=== PATIENT | female | born 1955 | race Caucasian/White ===

== ENCOUNTER 2017-11-07 21:46 | Emergency (ER) | payer MEDICARE ==
[~2017-11-07] VITALS: Ht 162.6 cm; Wt 99.8 kg
[~2017-11-07 21:46] MED LIST: AMITRIPTYLINE H25 M3 PO; ASPIRIN325 PO; ASPIRIN81 M2 PO; BYSTOLIC 5 MG5 M1 PO; CEFUROXIME500 MG PO; CLONIDINE HCL0.1 M1 PO; CLONIDINE HCL0.2 M2 PO; HYDRALAZINE 2525 MG PO; IMIPRAMINE HCL25 MG PO; KEFLEX250 MG PO; LIPITOR 20 MG T20 M1 PO; MIDAMOR 5MG TABL5 M1 PO; NORVASC10 MG PO; PERCOCET 5-3251 EACH PO; PERCOCET PO; RESTORIL15 MG PO; SERTRALINE HCL50 MG PO; TRAZODONE HCL100 MG PO; VICODIN 5-5001 EACH PO; VITAMIN D250000 UNIT PO; ZANAFLEX4 MG PO; ZOFRAN ODT4 MG PO
[2017-11-07] MEDS ORDERED: COMPAZINE10 MG PO (22:11)
[2017-11-07] MEDS ORDERED: CLONIDINE HCL0.2 M2 PO (22:11)
[2017-11-07 22:43] LABS: ABSOLUTE BASOPHILS 0.1 thou/uL (0.0-0.2); ABSOLUTE LYMPHOCYTES 2.8 thou/uL (0.8-5.3); ABSOLUTE MONOCYTES 0.6 thou/uL (0.0-1.2); ABSOLUTE NEUTROPHILS 7.4 thou/uL (1.6-8.1); BASOPHILS 1.2 %; EOSINOPHILS 0.3 %; HEMATOCRIT 48.3 % (37.0-47.0); HEMOGLOBIN 15.8 gm/dL (12.0-15.0); LYMPHOCYTES 25.4 %; MCH 28.8 pg (26.0-34.0); MCHC 32.7 g/dL (28.0-37.0); MCV 87.9 fL (80.0-100.0); MONOCYTES 5.8 %; MPV 7.6 fl. (7.2-11.1); NUCLEATED RBCS 0 /100WBC; PLATELET COUNT* 262 thou/uL (150-400); POLYS 67.3 %; RDW-CV 14.5 % (10.5-14.5)
[2017-11-07 22:53] LABS: ANION GAP 8 mmol/L (7-16); BUN 7 mg/dL (7-18); CALCIUM 8.7 mg/dL (8.5-10.1); CHLORIDE 101 mmol/L (98-107); CO2 28 mmol/L (21-32); CREATININE 0.9 mg/dL (0.6-1.3); GLUCOSE 152 mg/dL (70-99); POTASSIUM 3.5 mmol/L (3.5-5.1); SODIUM 137 mmol/L (136-145)
[2017-11-07 23:03] LABS: ALBUMIN 3.6 g/dL (3.4-5.0); ALKALINE PHOSPHATASE 112 U/L (46-116); LIPASE 58 U/L (73-393); MAGNESIUM 1.6 mg/dL (1.8-2.4); NT-PRO BRAIN NAT PEPTIDE 1610 pg/mL (<300); SGOT 22 U/L (15-37); SGPT 23 U/L (30-65); TOTAL BILIRUBIN 0.8 mg/dL (<0.1-1.0); TOTAL PROTEIN 7.4 g/dL (6.4-8.2); TROPONIN-I LEVEL <0.06 ng/mL (<0.06)
[2017-11-08 03:10] LABS: URINE BILIRUBIN NEGATIVE (Negative); URINE BLOOD 1+ (Negative); URINE CLARITY SL CLOUDY; URINE COLOR YELLOW; URINE GLUCOSE-RANDOM NEGATIVE (Negative); URINE KETONES NEGATIVE (Negative); URINE LEUKOCYTES-REFLEX 2+ (Negative); URINE NITRITE-REFLEX NEGATIVE (Negative); URINE PROTEIN 1+ (Negative); URINE UROBILINOGEN 0.2 E.U./dl (0.2-1.0)
[2017-11-08 03:15] LABS: CASTS None Seen /LPF (None Seen); SQUAMOUS NONE SEEN /LPF (0-3)
[2017-11-08 03:16] LABS: BACTERIA-REFLEX >30 Many /HPF (None Seen); CRYSTALS None Seen /LPF (None Seen); URINE RBC 3-10 Few /HPF (0-2); URINE WBC-REFLEX 6-15 Few /HPF (0-5)
[2017-11-08] MEDS ORDERED: NORCO 5-325 TA1 EACH PO (04:15)
[2017-11-08] MEDS ORDERED: TETRACYCLINE H250 MG PO (04:15)
[2017-11-08 05:16] VITALS: BP 200/106
--- NOTE | 2017-11-08 11:00 | EKG ---
[place] [address] ELECTROCARDIOGRAM REPORT Name: NIRMAL CAMACHO Room: [facility]#: [id number] Admission: 11/07/17 Attend Phys: Discharge: 11/08/17 Date of : 53 Report #: [id number] THIS REPORT FOR: //name// 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
--- NOTE | 2017-11-08 11:02 | EKG ---
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
[2017-12-31] MEDS ORDERED: MOBIC15 MG PO (12:52)
[2017-12-31] MEDS ORDERED: MEDROLDOSEPACK PO (13:02)
[2017-12-31] MEDS ORDERED: ZANAFLEX4 MG PO (14:01)
[2017-12-31] MEDS ORDERED: NORTRIPTYLINE H25 M3 PO (14:01)
== END 2017-11-08 05:17 | disposition home or self-care (01) ==
LOC: M.ERS 21:46
PROVIDERS: Emergency Medicine Emergency Medical Services
DX: M25.511 Pain in right shoulder (principal); M25.512 Pain in left shoulder; N39.0 Urinary tract infection, site not specified; F32.9 Major depressive disorder, single episode, unspecified; I10 Essential (primary) hypertension; Z90.710 Acquired absence of both cervix and uterus; Z90.49 Acquired absence of other specified parts of digestive tract; E66.9 Obesity, unspecified; Z68.37 Body mass index [BMI] 37.0-37.9, adult; Z88.1 Allergy status to other antibiotic agents; Z88.2 Allergy status to sulfonamides; Z88.8 Allergy status to other drugs, medicaments and biological substances

== ENCOUNTER 2017-11-13 09:25 | Emergency (ER) | payer MEDICARE ==
[~2017-11-13] VITALS: Ht 162.6 cm; Wt 99.8 kg
[~2017-11-13 09:25] MED LIST changes: +COMPAZINE10 MG PO; +NORCO 5-325 TA1 EACH PO; +TETRACYCLINE H250 MG PO
[2017-11-13] MEDS ORDERED: RESTORIL15 MG PO (09:35)
[2017-11-13] MEDS ORDERED: CLONIDINE0.1 PO (09:35)
[2017-11-13 09:54] LABS: ABSOLUTE BASOPHILS 0.1 thou/uL (0.0-0.2); ABSOLUTE LYMPHOCYTES 2.3 thou/uL (0.8-5.3); ABSOLUTE MONOCYTES 0.6 thou/uL (0.0-1.2); ABSOLUTE NEUTROPHILS 6.1 thou/uL (1.6-8.1); BASOPHILS 0.7 %; EOSINOPHILS 0.5 %; HEMATOCRIT 46.4 % (37.0-47.0); HEMOGLOBIN 15.5 gm/dL (12.0-15.0); LYMPHOCYTES 25.2 %; MCH 29.1 pg (26.0-34.0); MCHC 33.4 g/dL (28.0-37.0); MCV 87.2 fL (80.0-100.0); MONOCYTES 6.7 %; MPV 7.6 fl. (7.2-11.1); NUCLEATED RBCS 0 /100WBC; PLATELET COUNT* 213 thou/uL (150-400); POLYS 66.9 %; RBC 5.32 mil/uL (4.20-5.00); RDW-CV 14.9 % (10.5-14.5); WBC 9.1 thou/uL (4.0-11.0)
[2017-11-13 10:05] LABS: CREATININE 0.7 mg/dL (0.6-1.3); POTASSIUM 3.5 mmol/L (3.5-5.1)
[2017-11-13 10:10] LABS: ALBUMIN 3.6 g/dL (3.4-5.0); TOTAL BILIRUBIN 0.9 mg/dL (<0.1-1.0); TOTAL PROTEIN 7.2 g/dL (6.4-8.2)
[2017-11-13 11:31] VITALS: BP 190/105
--- NOTE | 2017-11-13 17:25 | EKG ---
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
[2017-12-31] MEDS ORDERED: MOBIC15 MG PO (12:52)
[2017-12-31] MEDS ORDERED: MEDROLDOSEPACK PO (13:02)
[2017-12-31] MEDS ORDERED: ZANAFLEX4 MG PO (14:01)
[2017-12-31] MEDS ORDERED: NORTRIPTYLINE H25 M3 PO (14:01)
== END 2017-11-13 11:31 | disposition home or self-care (01) ==
LOC: M.ERS 09:25
PROVIDERS: Family Medicine
DX: G89.29 Other chronic pain (principal); M54.9 Dorsalgia, unspecified; R07.89 Other chest pain; R10.9 Unspecified abdominal pain; F32.9 Major depressive disorder, single episode, unspecified; I10 Essential (primary) hypertension; E66.9 Obesity, unspecified; Z68.37 Body mass index [BMI] 37.0-37.9, adult; Z88.1 Allergy status to other antibiotic agents; Z88.2 Allergy status to sulfonamides; Z88.8 Allergy status to other drugs, medicaments and biological substances; Z90.710 Acquired absence of both cervix and uterus; Z90.49 Acquired absence of other specified parts of digestive tract

== ENCOUNTER → 2017-11-28 | Outpatient (CLI) | payer MEDICARE ==
[~2017-11-28] MED LIST changes: +CLONIDINE0.1 PO; +MEDROLDOSEPACK PO; +MOBIC15 MG PO; +NORTRIPTYLINE H25 M3 PO
== END ==
LOC: M.NUC 12:44
DX: M54.6 Pain in thoracic spine (principal); G89.29 Other chronic pain; M54.2 Cervicalgia; M54.41 Lumbago with sciatica, right side; M54.42 Lumbago with sciatica, left side; R10.13 Epigastric pain; M47.892 Other spondylosis, cervical region; I10 Essential (primary) hypertension; E66.9 Obesity, unspecified; F32.9 Major depressive disorder, single episode, unspecified; Z90.710 Acquired absence of both cervix and uterus

== ENCOUNTER → 2017-11-29 | Outpatient (CLI) | payer MEDICARE | LOC: M.MRI 11-20 10:39 | DX: M54.6 Pain in thoracic spine (principal); G89.29 Other chronic pain; M54.2 Cervicalgia; M54.41 Lumbago with sciatica, right side; M54.42 Lumbago with sciatica, left side; M47.896 Other spondylosis, lumbar region; M47.897 Other spondylosis, lumbosacral region; I10 Essential (primary) hypertension; F32.9 Major depressive disorder, single episode, unspecified; E66.9 Obesity, unspecified; Z90.710 Acquired absence of both cervix and uterus ==

== ENCOUNTER → 2017-12-23 | Outpatient (CLI) | payer MEDICARE ==
--- NOTE | 2017-12-23 17:39 | 2DMMODE ---
[place] [address] 2 D/M-MODE ECHOCARDIOGRAM Name: CAMACHONIRMAL Room: [facility]#: [id number] Admission: 12/23/17 Attend Phys: Fadi Smith, Discharge: Date of : 53 Date of Service: 12/23/17 1738 Report #: [id number] THIS REPORT FOR: //name// APPROVED REPORT Study performed: 12/23/2017 13:36:50 EXAM: Comprehensive 2D, Doppler, and color-flow Echocardiogram Patient Location: Out-Patient Status: routine BSA: 1.88 HR: 98 bpm BP: 112/51 mmHg Other Information Study Quality: Fair Indications Congestive Heart Failure 2D Dimensions IVSd: 12.31 (7-11mm) LVOT Diam: 20.39 (18-24mm) LVDd: 32.37 mm PWd: 11.42 (7-11mm) Ascending Ao: 25.86 (22-36mm) LVDs: 26.59 (25-40mm) Aortic Root: 28.91 mm Volumes Left Atrial Volume (Systole) LA ESV Index: 16.30 mL/m2 Aortic Valve AoV Peak Pranav.: 1.03 m/s AO Peak Gr.: 4.27 mmHg LVOT Max P.93 mmHg AO Mean Gr.: 2.42 mmHg LVOT Mean P.67 mmHg LVOT Max V: 0.86 m/s AO V2 VTI: 18.60 cm LVOT Mean V: 0.61 m/s CRISSY (VTI): 3.10 cm2 LVOT V1 VTI: 17.62 cm Mitral Valve E/A Ratio: 0.76 MV Decel. Time: 246.56 ms MV E Max Pranav.: 0.62 m/s MV PHT: 71.50 [place] [address] 2 D/M-MODE ECHOCARDIOGRAM Name: JANICENIRMAL Room: [facility]#: [id number] Admission: 12/23/17 Attend Phys: Fadi Smith, Discharge: Date of : 53 Date of Service: 12/23/17 1738 Report #: [id number] MVA (PHT): 3.08 cm2 TDI E/Lateral E': 10.33 E/Medial E': 10.33 Medial E' Pranav.: 0.06 m/s Lateral E' Pranav.: 0.06 m/s Pulmonary Valve PV Peak Pranav.: 1.01 m/s PV Peak Gr.: 4.04 mmHg Left Ventricle The left ventricle is normal size. There is normal LV segmental wall motion. There is normal left ventricular wall thickness. Left ventricular systolic function is vigorous. LVEF is >70%. Grade I - abnormal relaxation pattern. Right Ventricle The right ventricle is normal size. The right ventricular systolic function is normal. Atria The left atrium size is normal. The right atrium size is normal. Aortic Valve Mild aortic valve sclerosis. No aortic regurgitation is present. There is no aortic valvular stenosis. Mitral Valve The mitral valve is normal in structure. There is no mitral valve regurgitation noted. No evidence of mitral valve stenosis. Tricuspid Valve The tricuspid valve is normal in structure. There is no tricuspid valve regurgitation noted. Pulmonic Valve The pulmonary valve is normal in structure. Mild pulmonic regurgitation. Great Vessels The aortic root is normal in size. IVC is normal in size and collapses >50% with inspiration. Pericardium There is no peric[place] [address] 2 D/M-MODE ECHOCARDIOGRAM Name: JANICENIRMAL Room: [facility]#: [id number] Admission: 12/23/17 Attend Phys: Fadi Smith, Discharge: Date of : 53 Date of Service: 12/23/17 1738 Report #: [id number] <Conclusion> The left ventricle is normal size. There is normal left ventricular wall thickness. Left ventricular systolic function is vigorous. LVEF is >70%. Grade I - abnormal relaxation pattern. IVC is normal in size and collapses >50% with inspiration. <ELECTRONICALLY SIGNED> By: Edgardo Martinez MD, FACC 12/23/17 173 37 37 Edgardo Martinez MD, FACC /INF
== END ==
LOC: M.CRD 12:41
DX: I35.8 Other nonrheumatic aortic valve disorders (principal); I37.1 Nonrheumatic pulmonary valve insufficiency; I50.22 Chronic systolic (congestive) heart failure; G89.29 Other chronic pain; M54.41 Lumbago with sciatica, right side; M54.42 Lumbago with sciatica, left side; M79.604 Pain in right leg; M79.605 Pain in left leg

== ENCOUNTER → 2017-12-31 | Outpatient (CLI) | payer MEDICARE | LOC: M.PC 08:21 | DX: M54.5 Low back pain (principal); M25.521 Pain in right elbow; M25.561 Pain in right knee; M25.562 Pain in left knee ==

== ENCOUNTER 2018-03-19 17:38 | Emergency (ER) | payer MEDICARE ==
[~2018-03-19] VITALS: Ht 162.6 cm; Wt 73.0 kg
[2018-03-19 18:34] LABS: URINE BILIRUBIN NEGATIVE (Negative); URINE BLOOD NEGATIVE (Negative); URINE CLARITY CLEAR; URINE COLOR YELLOW; URINE GLUCOSE-RANDOM NEGATIVE (Negative); URINE KETONES TRACE (Negative); URINE LEUKOCYTES-REFLEX 1+ (Negative); URINE NITRITE-REFLEX NEGATIVE (Negative); URINE PROTEIN NEGATIVE (Negative)
[2018-03-19 18:56] LABS: MUCUS 0-3 Light strn/LPF (None Seen); SQUAMOUS >10 Many /LPF (0-3)
[2018-03-19 18:57] LABS: BACTERIA-REFLEX >30 Many /HPF (None Seen); CRYSTALS None Seen /LPF (None Seen)
[2018-03-19 18:59] LABS: CASTS None Seen /LPF (None Seen); URINE RBC None Seen /HPF (0-2)
[2018-03-19 19:00] LABS: ABSOLUTE BASOPHILS 0.1 thou/uL (0.0-0.2); ABSOLUTE LYMPHOCYTES 2.2 thou/uL (0.8-5.3); ABSOLUTE MONOCYTES 0.8 thou/uL (0.0-1.2); ABSOLUTE NEUTROPHILS 7.2 thou/uL (1.6-8.1); BASOPHILS 1.1 %; EOSINOPHILS 0.2 %; HEMATOCRIT 44.2 % (37.0-47.0); HEMOGLOBIN 14.8 gm/dL (12.0-15.0); LYMPHOCYTES 21.1 %; MCH 30.7 pg (26.0-34.0); MCHC 33.5 g/dL (28.0-37.0); MCV 91.7 fL (80.0-100.0); MONOCYTES 7.7 %; MPV 7.2 fl. (7.2-11.1); NUCLEATED RBCS 0 /100WBC; PLATELET COUNT* 267 thou/uL (150-400); POLYS 69.9 %; RBC 4.82 mil/uL (4.20-5.00); RDW-CV 14.7 % (10.5-14.5); WBC 10.3 thou/uL (4.0-11.0)
[2018-03-19 19:13] LABS: ANION GAP 9 mmol/L (7-16); BUN 6 mg/dL (7-18); CHLORIDE 103 mmol/L (98-107); CO2 25 mmol/L (21-32); CREATININE 0.8 mg/dL (0.6-1.3); GLUCOSE 122 mg/dL (70-99); POTASSIUM 3.3 mmol/L (3.5-5.1); SODIUM 137 mmol/L (136-145)
[2018-03-19 19:21] LABS: ALKALINE PHOSPHATASE 112 U/L (46-116); LIPASE 41 U/L (73-393); SGOT 16 U/L (15-37); SGPT 14 U/L (30-65); TOTAL PROTEIN 6.4 g/dL (6.4-8.2); TROPONIN-I LEVEL <0.06 ng/mL (<0.06)
[2018-03-19] MEDS ORDERED: NORCO 5-325 TA1 EACH PO (19:54)
[2018-03-19] MEDS ORDERED: MACROBID 100 M100 M1 PO (19:55)
[2018-03-19 22:00] VITALS: BP 171/99
--- NOTE | 2018-03-20 09:52 | EKG ---
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 : 1955 Requested By: Ale Chappell Order Number: [id number] MD: Fadi Moody Measurements Intervals [place] Rate: 101 P: 53 [place]: 161 QRS: 9 QRSD: 90 T: 41 QT: 358 QTc: 465 Interpretive Statements Sinus tachycardia Compared to ECG 11/13/2017 09:39:51 Sinus rhythm no longer present ST (T wave) deviation no longer present Electronically Signed On 03-20-2018 9:52:37 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
== END 2018-03-19 22:07 | disposition home or self-care (01) ==
LOC: M.ERS 17:38
PROVIDERS: Physician Assistant
DX: N39.0 Urinary tract infection, site not specified (principal); I10 Essential (primary) hypertension; F32.9 Major depressive disorder, single episode, unspecified; E66.9 Obesity, unspecified; Z68.27 Body mass index [BMI] 27.0-27.9, adult; Z88.1 Allergy status to other antibiotic agents; Z88.2 Allergy status to sulfonamides; Z88.8 Allergy status to other drugs, medicaments and biological substances; Z90.710 Acquired absence of both cervix and uterus; Z90.49 Acquired absence of other specified parts of digestive tract

== ENCOUNTER → 2018-05-20 | Outpatient (CLI) | payer MEDICARE ==
[~2018-05-20] MED LIST changes: +MACROBID 100 M100 M1 PO
== END ==
LOC: M.ULTRA 12:44
DX: M79.604 Pain in right leg (principal); M79.605 Pain in left leg; R25.2 Cramp and spasm

== ENCOUNTER 2018-06-07 13:31 | Emergency (ER) | payer MEDICARE ==
[~2018-06-07] VITALS: Ht 162.6 cm; Wt 82.6 kg
[2018-06-07] MEDS ORDERED: AMITRIPTYLINE H25 M4 (13:42)
[2018-06-07] MEDS ORDERED: CYCLOBENZAPRINE5 MG PO (13:43)
[2018-06-07] MEDS ORDERED: [UNRECOGNIZED DRUG - OTHER] (13:43)
[2018-06-07 14:19] LABS: ABSOLUTE BASOPHILS 0.1 thou/uL (0.0-0.2); ABSOLUTE LYMPHOCYTES 2.3 thou/uL (0.8-5.3); ABSOLUTE MONOCYTES 0.7 thou/uL (0.0-1.2); BASOPHILS 0.5 %; EOSINOPHILS 0.4 %; HEMOGLOBIN 15.4 gm/dL (12.0-15.0); LYMPHOCYTES 21.1 %; MCH 29.1 pg (26.0-34.0); MCHC 32.8 g/dL (28.0-37.0); MCV 88.6 fL (80.0-100.0); MONOCYTES 6.1 %; MPV 8.2 fl. (7.2-11.1); NUCLEATED RBCS 0 /100WBC; PLATELET COUNT* 164 thou/uL (150-400); POLYS 71.9 %; RDW-CV 13.8 % (10.5-14.5); WBC 11.1 thou/uL (4.0-11.0)
[2018-06-07 14:46] LABS: ANION GAP 10 mmol/L (7-16); BUN 8 mg/dL (7-18); CALCIUM 9.3 mg/dL (8.5-10.1); CHLORIDE 104 mmol/L (98-107); CO2 27 mmol/L (21-32); CREATININE 0.9 mg/dL (0.6-1.3); GLUCOSE 135 mg/dL (70-99); SODIUM 141 mmol/L (136-145); TROPONIN-I LEVEL <0.06 ng/mL (<0.06)
[2018-06-07 15:01] LABS: ALBUMIN 3.5 g/dL (3.4-5.0); ALKALINE PHOSPHATASE 128 U/L (46-116); CK-MB MASS 0.7 ng/mL (<0.5-3.6); LIPASE 44 U/L (73-393); MAGNESIUM 1.8 mg/dL (1.8-2.4); NT-PRO BRAIN NAT PEPTIDE 516 pg/mL (<300); SGOT 13 U/L (15-37); SGPT 5 U/L (30-65); TOTAL BILIRUBIN 0.3 mg/dL (<0.1-1.0); TOTAL PROTEIN 7.5 g/dL (6.4-8.2)
[2018-06-07] MEDS ORDERED: PERCOCET 5-3251 EACH PO (15:33)
[2018-06-07 15:54] VITALS: BP 180/99
--- NOTE | 2018-06-09 11:04 | EKG ---
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
== END 2018-06-07 15:56 | disposition home or self-care (01) ==
LOC: M.ERS 13:31
PROVIDERS: Family Medicine
DX: G89.29 Other chronic pain (principal); M54.9 Dorsalgia, unspecified; R07.89 Other chest pain; F32.9 Major depressive disorder, single episode, unspecified; I10 Essential (primary) hypertension; E66.9 Obesity, unspecified; Z68.31 Body mass index [BMI] 31.0-31.9, adult; Z88.1 Allergy status to other antibiotic agents; Z88.2 Allergy status to sulfonamides; Z88.8 Allergy status to other drugs, medicaments and biological substances; Z90.710 Acquired absence of both cervix and uterus; Z90.49 Acquired absence of other specified parts of digestive tract

== ENCOUNTER 2018-06-20 12:03 | Inpatient (IN) | payer MEDICARE ==
[~2018-06-20] VITALS: Ht 165.1 cm; Wt 76.7 kg
--- NOTE | ~2018-06-20 | CON ---
[address] [address] CONSULTATION Name: JANICENIRMAL EDI Room: [address] IN .R.#: [id number] Admission: 06/20/18 Attend Phys: Markie De Los Santos MD Discharge: Date of : 53 Report #: [id number] THIS REPORT FOR: //name// CC: Markie Smith DATE OF SERVICE: 06/22/2018 INPATIENT CONSULTATION REQUESTING PHYSICIAN: Dr. De Los Santos PRIMARY CARE PHYSICIAN: Dr. Smith REASON FOR CONSULTATION: Preop evaluation. HISTORY OF PRESENT ILLNESS: The patient is a 63-year-old smoker who had been having some neurologic symptoms, had a carotid Doppler, which revealed a greater than 70% stenosis of her left internal carotid artery. There is a moderate stenosis on the right side. She actually presented with epigastric pain. She has had some chest pressure occasionally. It usually starts in her stomach. She is not short of breath. She denies palpitations, heart racing or skipping. Her resting ECG demonstrates a sinus rhythm with nonspecific ST-segment abnormalities. PAST MEDICAL HISTORY: Significant for the following: She is treated for high blood pressure, chronic anxiety, GERD, hyperlipidemia. She is not diabetic. ALLERGIES: SHE HAS ALLERGIES TO AMPICILLIN, SUCRALFATE, GABAPENTIN. HOME MEDICATIONS: Include clonidine 0.1 mg b.i.d., trazodone 100 mg at bedtime and amitriptyline. PAST SURGICAL HISTORY: Hysterectomy, appendectomy, shoulder surgery, tobacco use. SOCIAL HISTORY: She quit smoking about 4 years ago. She does not drink. REVIEW OF SYSTEMS: CARDIOVASCULAR: Positive chest pain. Positive epigastric pain. No palpitation, no orthopnea, no PND, no dyspnea. PULMONARY: No history of asthma, emphysema. RENAL: Positive history of remote kidney failure. ENDOCRINE: She is not known to be diabetic. HEMATOLOGIC: [place] [address] CONSULTATION Name: NIRMAL CAMACHO Room: [address]#: [id number] Admission: 06/20/18 Attend Phys: Markie De Los Santos MD Discharge: Date of : 53 Report #: [id number] UROLOGIC: No history of kidney stones. SKIN: No rashes. GENERAL: No fevers or chills. OBJECTIVE: VITAL SIGNS: Blood pressure is 153/71, pulse is 100. GENERAL: This is a middle-aged female. She is a bit anxious. HEENT: Unremarkable. There is no facial asymmetry. NECK: Supple. No jugular venous distention. Carotid upstrokes are normal. I could not hear bruits. CARDIOVASCULAR: Regular, I cannot hear a murmur or S3. LUNGS: Clear to auscultation. ABDOMEN: Soft, nontender. EXTREMITIES: There is no peripheral edema. LABORATORY DATA: Electrocardiogram shows sinus rhythm, sinus tachycardia, somewhat lower voltage, but normal ST segments with slight T-wave nonspecific abnormality. Hemoglobin is 13.7, white blood cells 9.7, platelet count is 183. INR is 1.0. Carotid Doppler demonstrates mild plaquing on the right side with 40-60% stenosis. Moderate plaquing of the proximal left internal carotid artery with a greater than 70% stenosis. Bilateral antegrade vertebral flow. IMPRESSION: 1. Hypertension. I would continue with aggressive medical therapy. I would add a lower dose of an ARB, but I would not perform this additional change until after her carotid surgery. I will try to keep her blood pressure high normal to modestly elevated. 2. Carotid stenosis. I see no contraindications to her surgical therapy. She should have a stress test, but I would probably proceed with this as an outpatient after her surgery. Her echocardiogram has been ordered. Assuming there are no wall motion abnormalities and she has normal left ventricular function, she can proceed with carotid surgery with only moderately increased cardiovascular risk. 3. Hyperlipidemia. I would treat her aggressively with a statin. 4. Abdominal pain. She has been placed on proton pump inhibitor therapy and seems asymptomatic. By: 1038 [id number] Davila MD, FACC /nt
[~2018-06-20 12:03] MED LIST changes: +AMITRIPTYLINE H25 M4 PO; +CYCLOBENZAPRINE5 MG PO; +[UNRECOGNIZED DRUG - OTHER]
[2018-06-20 12:04] VITALS: BP 183/121
[2018-06-20 13:11] LABS: ABSOLUTE BASOPHILS 0.1 thou/uL (0.0-0.2); ABSOLUTE LYMPHOCYTES 1.7 thou/uL (0.8-5.3); ABSOLUTE MONOCYTES 0.9 thou/uL (0.0-1.2); ABSOLUTE NEUTROPHILS 10.4 thou/uL (1.6-8.1); BASOPHILS 0.8 %; EOSINOPHILS 0.2 %; HEMATOCRIT 44.3 % (37.0-47.0); HEMOGLOBIN 14.8 gm/dL (12.0-15.0); LYMPHOCYTES 13.1 %; MCH 29.2 pg (26.0-34.0); MCHC 33.4 g/dL (28.0-37.0); MCV 87.4 fL (80.0-100.0); MPV 8.3 fl. (7.2-11.1); NUCLEATED RBCS 0 /100WBC; PLATELET COUNT* 236 thou/uL (150-400); POLYS 78.9 %; RBC 5.07 mil/uL (4.20-5.00); RDW-CV 14.6 % (10.5-14.5); WBC 13.2 thou/uL (4.0-11.0)
[2018-06-20 13:18] LABS: APTT 26.3 Seconds (25.0-31.3); PROTIME 10.4 Seconds (9.20-11.50)
[2018-06-20 13:27] LABS: ALBUMIN 3.3 g/dL (3.4-5.0); ALKALINE PHOSPHATASE 109 U/L (46-116); ANION GAP 12 mmol/L (7-16); BUN 8 mg/dL (7-18); CALCIUM 9.7 mg/dL (8.5-10.1); CHLORIDE 103 mmol/L (98-107); CO2 28 mmol/L (21-32); CREATININE 0.8 mg/dL (0.6-1.3); GLUCOSE 130 mg/dL (70-99); LIPASE 33 U/L (73-393); POTASSIUM 3.3 mmol/L (3.5-5.1); SGOT 11 U/L (15-37); SGPT 9 U/L (30-65); SODIUM 143 mmol/L (136-145); TOTAL BILIRUBIN 0.8 mg/dL (<0.1-1.0); TOTAL PROTEIN 6.9 g/dL (6.4-8.2); TROPONIN-I LEVEL <0.06 ng/mL (<0.06)
[2018-06-20 15:23] LABS: URINE BILIRUBIN NEGATIVE (Negative); URINE BLOOD TRACE (Negative); URINE CLARITY CLEAR; URINE COLOR YELLOW; URINE GLUCOSE-RANDOM NEGATIVE (Negative); URINE KETONES NEGATIVE (Negative); URINE LEUKOCYTES-REFLEX 1+ (Negative); URINE NITRITE-REFLEX NEGATIVE (Negative); URINE PROTEIN NEGATIVE (Negative)
[2018-06-20 15:42] LABS: SQUAMOUS NONE SEEN /LPF (0-3); URINE RBC None Seen /HPF (0-2); URINE WBC-REFLEX 6-15 Few /HPF (0-5)
[2018-06-20 15:43] LABS: CASTS None Seen /LPF (None Seen); CRYSTALS None Seen /LPF (None Seen)
[2018-06-20] MEDS ORDERED: ZANAFLEX4 MG PO (16:47)
[2018-06-20 18:42] LABS: AMP/METHAMP Negative (Negative); BARBITURATES Negative (Negative); BENZODIAZEPINES Negative (Negative); COCAINE Negative (Negative); METHADONE Negative (Negative); OPIATES POSITIVE (Negative); PCP Negative (Negative); THC Negative (Negative)
[2018-06-20 20:01] VITALS: BP 146/58
[2018-06-20 20:12] VITALS: BP 161/65
[2018-06-20 23:24] VITALS: BP 173/91
[2018-06-21 04:03] VITALS: BP 161/93
[2018-06-21 05:07] LABS: ABSOLUTE BASOPHILS 0.1 thou/uL (0.0-0.2); ABSOLUTE EOSINOPHILS 0.1 thou/uL (0.0-0.7); ABSOLUTE LYMPHOCYTES 2.9 thou/uL (0.8-5.3); ABSOLUTE MONOCYTES 0.9 thou/uL (0.0-1.2); ABSOLUTE NEUTROPHILS 5.8 thou/uL (1.6-8.1); BASOPHILS 0.6 %; EOSINOPHILS 1.2 %; HEMATOCRIT 42.5 % (37.0-47.0); HEMOGLOBIN 13.7 gm/dL (12.0-15.0); LYMPHOCYTES 29.9 %; MCH 28.9 pg (26.0-34.0); MCHC 32.3 g/dL (28.0-37.0); MCV 89.4 fL (80.0-100.0); MONOCYTES 8.8 %; MPV 8.7 fl. (7.2-11.1); NUCLEATED RBCS 0 /100WBC; PLATELET COUNT* 183 thou/uL (150-400); POLYS 59.5 %; RBC 4.75 mil/uL (4.20-5.00); RDW-CV 14.5 % (10.5-14.5); WBC 9.7 thou/uL (4.0-11.0)
[2018-06-21 06:14] LABS: CALCIUM 8.3 mg/dL (8.5-10.1); CREATININE 0.6 mg/dL (0.6-1.3); POTASSIUM 3.6 mmol/L (3.5-5.1)
[2018-06-21 08:00] VITALS: BP 200/96
[2018-06-21 12:00] VITALS: BP 213/102
--- NOTE | 2018-06-21 12:29 | EKG ---
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
[2018-06-21 16:00] VITALS: BP 110/68
[2018-06-21 20:00] VITALS: BP 155/93
[2018-06-22] VITALS (9 sets, daily range): BP systolic 126–191; BP diastolic 55–87
[2018-06-23] VITALS (7 sets, daily range): BP systolic 111–183; BP diastolic 60–81
--- NOTE | 2018-06-23 11:53 | OP ---
[address] [address] OPERATIVE REPORT Name: JANICENIRMAL EDI Room: [address] IN M.R.#: [id number] Admission: 06/20/18 Attend Phys: Markie De Los Santos MD Discharge: Date of : 53 Report #: [id number] THIS REPORT FOR: //name// CC: Markie Aponte [facility] DATE OF SERVICE: 06/22/2018 Vascular Surgery Consultation REFERRING PHYSICIAN: Markie De Los Santos MD REASON FOR CONSULTATION: Carotid artery stenosis. HISTORY OF PRESENT ILLNESS: The patient is a pleasant 63-year-old white female, presents with vague complaints of chest pain, abdominal pain, indigestion, shoulder pain, and headache. Extensive workup has been performed. This included a carotid Duplex, which shows severe left internal carotid artery stenosis based on my read, I would place it at approximately 90% based on the end-diastolic velocity of greater than 100. The right internal carotid artery has moderate disease, approximately 50%-69%. She denies any signs or symptoms of TIA or stroke including amaurosis fugax, unilateral weakness, and dysarthria. Her is currently admitted to [facility] in need of some sort of cardiac intervention. It is unclear whether this is heart cath or heart surgery. She is under quite a bit of stress from this and thinks many of her symptoms may be related to this. PAST MEDICAL HISTORY: Significant for anxiety, chest pain, chronic back pain, GERD, hypertension, shoulder pain, tachycardia, urinary tract infection, bladder obstruction, obesity, opioid dependence, depression. PAST SURGICAL HISTORY: Significant for hysterectomy, appendectomy, shoulder surgery. ALLERGIES: Include AMPICILLIN, LYRICA, CARAFATE, SULFA, and NEURONTIN. HOME MEDICATIONS: Include [place], Percocet, trazodone, clonidine, amitriptyline, Zanaflex. SOCIAL HISTORY: The patient is a former smoker, quit many years ago. Denies alcohol or drug use. REVIEW OF SYSTEMS: A 12-point review of systems reviewed and negative as per HPI. PHYSICAL EXAMINATION: [place] [address] OPERATIVE REPORT Name: NIRMAL CAMACHO Room: [address]#: [id number] Admission: 06/20/18 Attend Phys: Markie De Los Santos MD Discharge: Date of : 53 Report #: [id number] GENERAL: The patient in no acute distress. She is alert and oriented. VITAL SIGNS: Afebrile, vital signs stable. HEENT: Normocephalic, atraumatic. NECK: Supple. HEART: Regular. LUNGS: Clear. ABDOMEN: Soft, nontender, nondistended. NEUROLOGIC: Grossly intact. ASSESSMENT: Severe left internal carotid artery stenosis, asymptomatic. PLAN: 1. We will obtain CT angiogram to confirm degree of stenosis. 2. The patient will likely require left carotid endarterectomy on an elective basis. 3. We will have cardiology evaluate her while she is here for preoperative clearance. We will plan for carotid endarterectomy in the next couple of weeks, pending their clearance. 4. Recommend aspirin daily 81 mg. Thank you very much for allowing me to participate in the care of this very pleasant patient. Please free to call me if any questions or concerns with assessment or plan. <ELECTRONICALLY SIGNED> By: Pacheco Spring DO 06/23/18 1153 0541 0606Wally Torres MD /nt
[2018-06-23] MEDS ORDERED: ADULT LOW DOSE81 MG PO (12:30)
[2018-06-23] MEDS ORDERED: CARDIZEM CD120 MG PO ×2 (12:30→17:33)
[2018-06-23] MEDS ORDERED: HYDRALAZINE 2525 MG PO (12:30)
[2018-06-23] MEDS ORDERED: LOPRESSOR25 PO (12:30)
[2018-06-23] MEDS ORDERED: CARDIZEM30 MG PO (14:20)
--- NOTE | 2018-06-23 15:27 | 2DMMODE ---
[place] [address] 2 D/M-MODE ECHOCARDIOGRAM Name: NIRMAL CAMACHO EDI Room: [address] IN [facility]#: [id number] Admission: 06/20/18 Attend Phys: Markie De Los Santos, Discharge: Date of : 53 Date of Service: 06/23/18 1527 Report #: [id number] THIS REPORT FOR: //name// APPROVED REPORT Study performed: 06/23/2018 09:15:53 EXAM: Comprehensive 2D, Doppler, and color-flow Echocardiogram Patient Location: In-Patient Room #: [facility] Status: routine BSA: 1.88 HR: 98 bpm BP: 151/66 mmHg Rhythm: NSR Other Information Study Quality: Fair Technically limited study due to patient could not tolerate apical views.. Indications Pre-Op 2D Dimensions IVSd: 9.96 (7-11mm) LVOT Diam: 20.42 (18-24mm) LVDd: 44.86 mm PWd: 9.22 (7-11mm) Ascending Ao: 28.06 (22-36mm) LVDs: 24.91 (25-40mm) Aortic Root: 29.52 mm Volumes Left Atrial Volume (Systole) LA ESV Index: 22.70 mL/m2 Aortic Valve AoV Peak Pranav.: 1.57 m/s AO Peak Gr.: 9.87 mmHg LVOT Max P.98 mmHg AO Mean Gr.: 5.35 mmHg LVOT Mean P.70 mmHg LVOT Max V: 1.00 m/s AO V2 VTI: 28.21 cm LVOT Mean V: 0.78 m/s CRISSY (VTI): 2.83 cm2 LVOT V1 VTI: 24.37 cm Mitral Valve E/A Ratio: 0.83 [place] [address] 2 D/M-MODE ECHOCARDIOGRAM Name: NIRMAL CAMACHO Room: [address] IN ..#: [id number] Admission: 06/20/18 Attend Phys: Markie De Los Santos, Discharge: Date of : 53 Date of Service: 06/23/18 1527 Report #: [id number] MV Decel. Time: 114.56 ms MV E Max Pranav.: 1.19 m/s MV PHT: 33.22 ms MVA (PHT): 6.62 cm2 Pulmonary Valve PV Peak Pranav.: 1.43 m/s PV Peak Gr.: 8.14 mmHg Left Ventricle The left ventricle is normal size. There is normal LV segmental wall motion. There is normal left ventricular wall thickness. Left ventricular systolic function is normal. The left ventricular ejection fraction is within the normal range. LVEF is 65-70%. This study is not technically sufficient to allow evaluation of the LV diastolic function. Right Ventricle The right ventricle is normal size. The right ventricular systolic function is normal. Atria The left atrium size is normal. The right atrium size is normal. Aortic Valve The aortic valve is normal in structure. No aortic regurgitation is present. There is no aortic valvular stenosis. Mitral Valve There is mitral annular calcification. There is no mitral valve regurgitation noted. No evidence of mitral valve stenosis. Tricuspid Valve The tricuspid valve is normal in structure. Unable to assess PA pressure. Trace tricuspid regurgitation. Pulmonic Valve Pulmonic valve is not well visualized. There is no pulmonic valvular regurgitation. Great Vessels The aortic root is normal in size. IVC is normal in size and collapses >50% with inspiration Pericardium There [place] [address] 2 D/M-MODE ECHOCARDIOGRAM Name: NIRMAL CAMACHO Room: [address] IN [facility]#: [id number] Admission: 06/20/18 Attend Phys: Markie De Los Santos, Discharge: Date of : 53 Date of Service: 06/23/18 1527 Report #: [id number] <Conclusion> Left ventricular systolic function is normal. The left ventricular ejection fraction is within the normal range. <ELECTRONICALLY SIGNED> By: Fadi Moody MD, FACC 06/23/18 1527 1527 1527 Fadi Moody MD, FAC /INF
== END 2018-06-23 21:40 | disposition home or self-care (01) | DRG 871 ==
LOC: M.ERS 12:03 → M.2W 16:07 → M.TBA-ER 16:07 → M.2W 20:12
PROVIDERS: Physician Assistant; ADMIT Internal Medicine
DX: A41.9 Sepsis, unspecified organism (principal); J96.01 Acute respiratory failure with hypoxia; N39.0 Urinary tract infection, site not specified; F11.20 Opioid dependence, uncomplicated; J44.0 Chronic obstructive pulmonary disease with (acute) lower respiratory infection; B49 Unspecified mycosis; J20.9 Acute bronchitis, unspecified; I25.10 Atherosclerotic heart disease of native coronary artery without angina pectoris; E78.5 Hyperlipidemia, unspecified; I65.22 Occlusion and stenosis of left carotid artery; I16.0 Hypertensive urgency; F41.9 Anxiety disorder, unspecified; K21.9 Gastro-esophageal reflux disease without esophagitis; F32.9 Major depressive disorder, single episode, unspecified; E66.9 Obesity, unspecified; I10 Essential (primary) hypertension; B96.89 Other specified bacterial agents as the cause of diseases classified elsewhere; Z90.710 Acquired absence of both cervix and uterus; Z90.49 Acquired absence of other specified parts of digestive tract; Z68.28 Body mass index [BMI] 28.0-28.9, adult; Z88.1 Allergy status to other antibiotic agents; Z88.2 Allergy status to sulfonamides; Z88.8 Allergy status to other drugs, medicaments and biological substances

== ENCOUNTER → 2018-08-06 | Outpatient (CLI) | payer MEDICARE ==
[~2018-08-06] MED LIST changes: +ADULT LOW DOSE81 MG PO; +CARDIZEM CD120 MG PO; +CARDIZEM30 MG PO; +LOPRESSOR25 PO
[2018-08-06 15:43] LABS: CREATININE 0.7 mg/dL (0.6-1.3)
== END ==
LOC: M.LAB 15:00 → M.CT 16:00
PROVIDERS: Internal Medicine
DX: R91.8 Other nonspecific abnormal finding of lung field (principal); K44.9 Diaphragmatic hernia without obstruction or gangrene; K21.0 Gastro-esophageal reflux disease with esophagitis; I50.22 Chronic systolic (congestive) heart failure; M54.2 Cervicalgia; M54.6 Pain in thoracic spine; G89.29 Other chronic pain; M54.42 Lumbago with sciatica, left side; M54.41 Lumbago with sciatica, right side